=== PATIENT | female | born 1975 | race Caucasian/White ===

== ENCOUNTER 2017-06-28 09:26 | Emergency (ER) | payer SELFPAY ==
[~2017-06-28] VITALS: Ht 157.5 cm; Wt 81.6 kg
--- NOTE | 2017-06-28 10:28 | Diagnostic Imaging Report ---
INDICATION: Left ankle pain with a prior remote history of previous ankle fracture FINDINGS: The cortex of the distal tibia and fibula appear intact. No acute fractures demonstrated. The talar dome is normal in morphology. There is no widening of the mortise. The visualized bones of the hindfoot demonstrate degenerative calcaneal spurs but no acute process. IMPRESSION: 1. No malalignment or evidence of acute ankle fracture. No significant residual deformity related to a prior fracture is evident. Dictated by: Dictated on workstation # [id number]
--- NOTE | 2017-06-28 10:48 | ED Lower Extremity ---
General Chief Complaint: Lower Extremity Stated Complaint: L FOOT INJ Nursing Triage Note: pt reports slipping on porch steps a couple of days ago and injuring the lateral side of her l foot. Nursing Sepsis Screen: No Definite Risk Source: patient Exam Limitations: no limitations History of Present Illness Time seen by provider: 09:40 Initial Comments Here with report of left ankle pain on the lateral aspect. She slipped on her front steps a few days ago and had pain to that area. She reports that she broke the same area many years ago and she is worried that she may have broken again. She has been able to walk and work on it. Onset: other (3 days ago) Severity: mild Pain/Injury Location: left ankle Method of Injury: twisted Modifying Factors: Improves With Immobilization, Worse With Movement, Improves With Rest Allergies and Home Medications Allergies Coded Allergies: No Known Drug Allergies (Unverified , 06/28/17) Constitutional: see HPI, chills, fever Respiratory: no symptoms reported Cardiovascular: no symptoms reported Musculoskeletal: joint pain, joint swelling Skin: no symptoms reported All Other Systems Reviewed Negative Unless Noted: No Past Mqzqhcu-Ihqgrw-Yoenoz Hx Patient Social History Alcohol Use: Denies Use Recreational Drug Use: No Smoking Status: Never a Smoker 2nd Hand Smoke Exposure: No Recent Foreign Travel: No Contact w/Someone Who Travel: No Recent Infectious Disease Expo: No Recent Hopitalizations: No Physical Abuse: No Sexual Abuse: No Seasonal Allergies Seasonal Allergies: No Surgeries History of Surgeries: Yes Surgeries: Appendectomy Psychosocial Suicide Risk Score: 0 Reviewed Nursing Assessment Reviewed/Agree w Nursing PMH: Yes Physical Exam Vital Signs Vital Sign - Last 12Hours 06/28/17 09:35 Temp 97.2 Pulse 68 Resp 16 B/P (MAP) 138/74 Pulse Ox 99 Capillary Refill : Less Than 3 Seconds General Appearance: WD/WN, no apparent distress Cardiovascular: regular rate, rhythm, no murmur Respiratory: lungs clear, normal breath sounds Ankles: bilateral ankle normal range of motion, left ankle soft tissue tenderness (mild in the lateral aspect), left ankle swelling (mild) Neurologic/Psychiatric: alert, oriented x 3 Skin: normal color, warm/dry Progress/Results/Core Measures Results/Orders My Orders Orders - DB ALMEIDA MD Ankle, Left, 3 Views (06/28/17 09:48) Vital Signs/I&O Vital Sign - Last 12Hours 06/28/17 09:35 Temp 97.2 Pulse 68 Resp 16 B/P (MAP) 138/74 Pulse Ox 99 Blood Pressure Mean: 95 Progress Note : Progress Note Seen and evaluated. X-ray left ankle. No acute findings. Donavan wrap and gel splint applied by tech. Discharged home with return precautions. Patient verbalize understanding instructions and agreement with plan. Diagnostic Imaging Diagonstic Imaging: Xray Plain Films/CT/US/NM/MRI: ankle Comments NAME: [facility] REC#: [id number] PT STATUS: REG ER : 1975 PHYSICIAN: DB ALMEIDA MD ADMIT DATE: 06/28/17/ER Signed Date of Exam: 06/28/17 ANKLE, LEFT, 3 VIEWS INDICATION: Left ankle pain with a prior remote history of previous ankle fracture FINDINGS: The cortex of the distal tibia and fibula appear intact. No acute fractures demonstrated. The talar dome is normal in morphology. There is no widening of the mortise. The visualized bones of the hindfoot demonstrate degenerative calcaneal spurs but no acute process. IMPRESSION: 1. No malalignment or evidence of acute ankle fracture. No significant residual deformity related to a prior fracture is evident. Dictated by: Dictated on workstation # [id number] Dict: 06/28/17 1014 Trans: 06/28/17 1032 Interpreted by: EITAN GILBERT MD Electronically signed by: EITAN GILBERT MD 06/28/17 1032 Departure Impression Impression: Primary Impression: Left ankle sprain Qualified Codes: S93.402A - Sprain of unspecified ligament of left ankle, initial encounter Disposition: 01 HOME, SELF-CARE Condition: Improved Departure-Patient Inst. Decision time for Depature: 10:51 Referrals: NO,LOCAL PHYSICIAN (PCP) Primary Care Physician DEMARCUS CHUN DO Patient Instructions: Ankle Sprain (DC) Add. Discharge Instructions: All discharge instructions reviewed with patient and/or family. Voiced understanding. Follow-up with your DrRima in a few days for recheck as needed. You may take ibuprofen 800 mg every 8 hours as needed for pain. You may take Tylenol 1000 mg every 8 hours as needed for pain. Use Donavan wrap and gel splint as needed for comfort. Return for worse pain, fever, vomiting, weakness, breathing problems or other concerns as needed. DB ALMEIDA MD Jun 28, 2017 10:48
[2017-06-28 10:58] VITALS: BP 138/74
== END 2017-06-28 10:58 | disposition home or self-care (01) ==
LOC: ER 09:29
DX: S93.402A Sprain of unspecified ligament of left ankle, initial encounter (principal); Z90.49 Acquired absence of other specified parts of digestive tract; W18.40XA Slipping, tripping and stumbling without falling, unspecified, initial encounter
CPT/HCPCS: 73610; 99283